=== PATIENT | female | born 1985 | race Caucasian/White ===

== ENCOUNTER 2019-09-25 13:49 | Emergency (ER) | payer SELFPAY ==
[~2019-09-25] VITALS: Ht 154.9 cm; Wt 80.3 kg
[2019-09-25 13:56] VITALS: Ht 154.9 cm; Wt 80.3 kg
[2019-09-25 14:40] VITALS: BP 121/76
== END 2019-09-25 14:40 | disposition home or self-care (01) ==
LOC: ED 13:49
DX: T78.40XA Allergy, unspecified, initial encounter (principal); Z88.2 Allergy status to sulfonamides; Z88.1 Allergy status to other antibiotic agents; X58.XXXA Exposure to other specified factors, initial encounter
CPT/HCPCS: J1100